=== PATIENT | female | born 1975 | race Caucasian/White ===

== ENCOUNTER 2022-06-07 07:19 | Emergency (ER) | payer SELFPAY ==
[~2022-06-07] VITALS: Ht 152.4 cm; Wt 75.7 kg
[2022-06-07 07:23] VITALS: BP 150/83
--- NOTE | 2022-06-07 07:25 | NUR ---
Dr. Penn evaluating pt at bedside
--- NOTE | 2022-06-07 07:27 | NUR ---
Pt ambulated to bed 04 with steady/even gait.
--- NOTE | 2022-06-07 07:35 | NUR ---
46 y/o F BIB self from home c/o RUQ/RLQ x 3 months worsening the past 10 days. Patient A&Ox4, ambulatory, states 7/10, twisting/cramping/constant, non-radiating pain. Worsens with palpation and alleviates with left lying position. RUQ tender to palp. Patient also states urinary frequency. Denies nausea, vomiting, diarrhea, constipation, chest pain, dysuria. 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 Urine sample collected. Bed locked in lowest position, side rails x 1. allergy: vitamin B pmh: denies sx: appendectomy, hysterectomy
[2022-06-07] MEDS ORDERED: MORPHINE SULFATE 4 MG/ML SYR IVP ONE (07:40)
[2022-06-07] MEDS ORDERED: ONDANSETRON 4 MG/2 ML VIAL IVP ONE (07:40)
--- NOTE | 2022-06-07 07:55 | NUR ---
Lab at bedside for blood draw. UA handed to CPT
[2022-06-07 08:09] LABS: BASOPHILS % (AUTO) 0.5 % (0.0-2.0); EOSINOPHILS # (AUTO) 0.1 K/uL (0-0.4); HEMATOCRIT 39.2 % (36-48); LYMPHOCYTES # (AUTO) 1.9 K/uL (2.5-16.5); LYMPHOCYTES % (AUTO) 32.4 % (20.5-51.1); MEAN CORPUSCULAR HEMOGLOBIN 30 pg (27-31); MEAN CORPUSCULAR HGB CONC 33 g/dL (33-37); MEAN CORPUSCULAR VOLUME 89.4 fL (80-94); MONOCYTES # (AUTO) 0.5 K/uL (0.8-1.0); MONOCYTES % (AUTO) 8.9 % (1.7-9.3); NEUTROPHILS # (AUTO) 3.4 K/uL (1.8-7.7); NEUTROPHILS % (AUTO) 57.2 % (42.2-75.2); PLATELET COUNT (AUTO) 264 K/uL (140-450); RED BLOOD CELL COUNT(AUTO) 4.38 MIL/uL (4.20-5.40); RED CELL DISTRIBUTION WIDTH 12.9 % (11.6-13.7); WHITE BLOOD COUNT (AUTO) 5.9 K/uL (4.8-10.8)
--- NOTE | 2022-06-07 08:11 | NUR ---
US tech at bedside
[2022-06-07 08:26] LABS: ALBUMIN 3.7 g/dL (3.4-5.0); ANION GAP 11.9 (8-16); CARBON DIOXIDE 28.2 mmol/L (21-32); CREATININE 0.7 mg/dL (0.6-1.3); POTASSIUM 4.1 mmol/L (3.5-5.1); TOTAL BILIRUBIN 0.4 mg/dL (0.0-1.0)
--- NOTE | 2022-06-07 08:55 | NUR ---
Pt + relief to pain, denies nausea. Ambulated to restroom steady/even gait.
[2022-06-07 09:13] LABS: APPEARANCE,URINE CLEAR (CLEAR); BILIRUBIN,URINE NEGATIVE (NEGATIVE); BLOOD, URINE NEGATIVE (NEGATIVE); COLOR,URINE YELLOW (YELLOW); LEUKOCYTE ESTERASE ,URINE NEGATIVE (NEGATIVE); NITRITE, URINE NEGATIVE (NEGATIVE); UGLUCOSE NEGATIVE (NEGATIVE)
[2022-06-07 09:15] VITALS: BP 140/88
[2022-06-07] MEDS ORDERED: BEN10 PO (10:44)
[2022-06-07] MEDS ORDERED: SUCR1TAB35 PO (10:44)
[2022-06-07] MEDS ORDERED: OMEP40EC24 PO (10:44)
[2022-06-07] MEDS ORDERED: DICYCLOMINE HCL LIQUID 20 MG, ALUMINUM HYD/MAG/SIMETHICONE 30 ML, LIDOCAINE VISCOUS 2% ... PO ONE ×3 (10:45)
[2022-06-07] MEDS ORDERED: DICYCLOMINE HCL LIQUID 10 MG/5 ML UDC ONE (10:51)
[2022-06-07] MEDS ORDERED: ALUMINUM HYD/MAG/SIMETHICONE 30 ML UDC ONE (10:51)
--- NOTE | 2022-06-07 10:59 | NUR ---
Patient discharged with v/s stable. Written and verbal after care instructions given and explained. Patient alert, oriented and verbalized understanding of instructions. Ambulatory with steady gait. All questions addressed prior to discharge. ID band removed. Patient advised to follow up with PMD. Rx of Bentyl, Prilosec, Carafate given. Patient educated on indication of medication including possible reaction and side effects. Opportunity to ask questions provided and answered. Copies of Ultrasound results given to patient with work note.
== END 2022-06-07 10:59 | disposition home or self-care (01) ==
LOC: MED 07:19
DX: K29.70 Gastritis, unspecified, without bleeding (principal)
CPT/HCPCS: 36415; 76705; 80053; 81003; 82150; 83690; 85025; 96374; 96375; 99284; J2270; J2405; Q0092